=== PATIENT | female | born 2000 | race Caucasian/White ===

== ENCOUNTER → 2022-12-23 10:00 | Outpatient (BNV) | payer OTHER, SELFPAY | PROVIDERS: Visit Provider Psychiatry & Neurology Psychiatry | DX: F43.10 Post-traumatic stress disorder, unspecified (principal); F32.2 Major depressive disorder, single episode, severe without psychotic features | CPT/HCPCS: 90792; 99213 ==

== ENCOUNTER 2023-01-07 10:30 | Outpatient (RCR) | payer OTHER, SELFPAY ==
[2022-12-23 11:57] VITALS: BP 110/82; PULSE 80; TEMP 37.3
[2022-12-23 12:06] VITALS: BMI 20.5
--- NOTE | 2022-12-23 12:14 | HO.PS.ADMBH ---
HPI Date of Service: 12/23/22 Chief Complaint: depression [facility] Medical History (Updated 12/23/22 @ 12:08 by Jazmyne Martin, RN) Asthma POTS (postural orthostatic tachycardia syndrome) Surgical History (Updated 12/23/22 @ 12:11 by Jazmyne Martin, RN) H/O adenoidectomy Hx of tonsillectomy Diagnostics Vital Signs (24Hr): Vital Signs - 24 hr 12/23/22 11:57 Temperature 99.2 F Pulse Rate 80 Blood Pressure 110/82 BMI result Body Mass Index 20.5 Meds/Allergies Allergies Allergies Allergy/AdvReac Type Severity Reaction Status Date / Time amoxicillin Allergy Rash Verified 12/23/22 12:09 cephalexin [From Keflex] Allergy Rash Verified 12/23/22 12:09 lidocaine Allergy Hives Verified 12/23/22 12:09 Assessment & Plan Certification I certify that partial hospital treatment is medically necessary due to the symptoms and problems resulting from the patient's mental illness and the failure to treat the patient at the partial hospital level of care would likely result in the patient requiring inpatient psychiatric care which could not be prevented at a less intensive level of care. Time Spent With Patient Time: Total time managing care of this patient today ____ minutes.
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
--- NOTE | 2022-12-23 15:40 | PC.ADMIT ---
Patient is a 22 year old female who was referred to [facility] by [facility] where she was admitted d/t increased anxiety, panic, and SI secondary to trauma history being triggered at work. Patient works at [employer] and was brought to the ER by a [employer] worker as a result of her symptoms. Patient reports using Cannabis daily to help with her anxiety however thinks she is using more often than she would like and thinks it could be contributing to her anxiety. Akash was given education written and verbal about the effects physically and mentally of Marijuana. Patient is alert and oriented x4. Calm and cooperative. Presented with depressed mood and anxious affect. Reports she has images of harming herself and thinking she should kill herself in the context of trauma however she stated she has no plan or intent to act on these thoughts The thoughts are disturbing to Akash. She wants them to go away. Medication reconciled with patient and patient's discharge paperwork from [facility]. She reports taking medications as prescribed.
--- NOTE | 2022-12-27 15:25 | HO.PHP ---
Akash called [facility] and states she will be out because she has a UTI. She states that she will be back to [facility] tomorrow
--- NOTE | 2022-12-27 16:46 | HO.PHP ---
On 12/23/22 the clients case was reviewed and opened in treatment team.
--- NOTE | 2022-12-28 12:29 | P.PNPSP_ITS ---
Subjective Subjective Date of Service: 12/28/22 Reason For Visit: depression Interim History: Patient seen for follow-up today. No acute issues. She has been Wellbutrin 150 mg and Zoloft 100 mg daily. Well tolerated, feels they help, she is less jittery since dose of ZOloft lowered back down from 150 mg and feels she is less suicidal since WB. She says this is the first time in the program and really likes it but has a difficult time with talking in groups on a ccount of anxiety. She has prn 50 mg Seroquel for day time anxiety/PA but had been out, she just filled it yesterday and took a dose and then fell asleep/napped for a couple of hours. She's not been taking the prrazosin at night bc she is forgetting. She agrees to try taking it a bit earlier in the evening, and if doesnt cause sedation we may try BID dosing to address some of the jitteriness/nervous anxiety she experiences dialy. She also has POTS. Denies thgouths of harming self/others. Mental Status Exam Mental Status Exam Narrative: alert, oriented and pleasant. Normal speech. Good eye contact. Affect is appropriate and varied. No signs of psychosis. No suicidal ideations upon inquiry. Cognitively is intact. Judgment is intact Diagnostics Vital Signs (24Hr): BMI result Body Mass Index 20.5 Assessment & Plan Assessment & Plan (1) PTSD (post-traumatic stress disorder): Status: Acute Code(s): F43.10 - Post-traumatic stress disorder, unspecified (2) Major depress dis, severe: Status: Acute Code(s): F32.2 - Major depressive disorder, single episode, severe without psychotic features Plan continue treatment plan, improve compliance with prazosin. We discussed trying BID if [facility] Certification I certify that partial hospital treatment is medically necessary due to the symptoms and problems resulting from the patient's mental illness and the failure to treat the patient at the partial hospital level of care would likely result in the patient requiring inpatient psychiatric care which could not be prevented at a less intensive level of care. Total time managing care of this patient today __30__ minutes. Discharge Plan Discharge Attending provider: Terrell Mckeon Medications: Continued prazosin 1 mg capsule 1 mg PO BEDTIME Qty: 20 0RF Changed lorazepam 0.5 mg tablet 0.5 mg PO DAILY PRN (Reason: Anxiety) Qty: 14 0RF quetiapine 50 mg tablet 50 mg PO DAILY PRN (Reason: anxiety) Qty: 14 0RF No Action lansoprazole 15 mg capsule,delayed release(DR/EC) 15 mg PO DAILY bupropion HCl 150 mg tablet extended release 24 hr 150 mg PO QAM sertraline 100 mg tablet 150 mg PO DAILY
[2022-12-31 15:17] VITALS: BP 115/92; PULSE 98
[2023-01-05 14:05] VITALS: BP 140/99; PULSE 110
--- NOTE | 2023-01-05 14:12 | PC.NURSE ---
Patient requested BP check as she stated she thinks she is having a, POTS attack She stated she gets them about once a month. Stated while in group she started to feel tired and weak and shaky. Stated she felt her heart Pounding . She stated she drank 3 bottles of water and is feeling better now. Feels more awake, stated she does not feel her heart pounding. She is alert and oriented. Feels safe to drive now. BP 140/99 P 110. Stated while in the hospital her blood pressure was, all over the place .
--- NOTE | 2023-01-06 16:40 | HO.PHP ---
PHP staff member faxed the referral for an OP therapist through [facility] in [place] for Akash.
--- NOTE | 2023-01-07 10:10 | HO.PHPPROGNO ---
Subjective Subjective Date of Service: 01/07/23 Reason For Visit: depression Interim History: Patient seen, plan for discharge today. No acute issues or concerns. Had some questions around ADHD medication which were addressed. Patient reports mood is stable, feels intrusive thoughts and anxiety are better and also more manageable. Forgot to take prazosin last night and had worse nightmare of her life. She continues to tolerate 1 mg prazosin without adverse effects. She is prescribed BID which affords her to take 1 mg as well during the day for anxiety as tolerated, as well as 1 mg daily at bedtime. Denies any SI, last time was over a month ago. No safety concerns. Appears bright affect, future-oriented. Medication Compliance: Yes Side effects from medications: No Review of Systems Acute medical concerns: No Mental Status Exam Mental Status Exam Narrative: Alert, oriented, in no acute distress. Pleasant, forthcoming, cooperative. Normal speech. Good eye contact. Affect is appropriate and varied. No signs of psychosis. No suicidal ideations, no thoughts of harming self or others upon inquiry. Cognitively is intact. Insight is good, Judgment is intact Diagnostics Vital Signs (24Hr): BMI result Body Mass Index 20.5 Assessment & Plan Assessment & Plan (1) PTSD (post-traumatic stress disorder): Status: Acute Code(s): F43.10 - Post-traumatic stress disorder, unspecified (2) Major depress dis, severe: Status: Acute Code(s): F32.2 - Major depressive disorder, single episode, severe without psychotic features Plan Discharge from [facility] today Will follow up treatment with providers in the community Patient educated on: diagnosis and medication risk/benefits Informed Consent: understands Reason for contiued partial hosp. stay Substantial Risk for: stable for discharge Certification I certify that partial hospital treatment is medically necessary due to the symptoms and problems resulting from the patient's mental illness and the failure to treat the patient at the partial hospital level of care would likely result in the patient requiring inpatient psychiatric care which could not be prevented at a less intensive level of care. Total time managing care of this patient today __30__ minutes. Discharge Plan Discharge Attending provider: Terrell Mckeon Additional Instructions: Akash next scheduled OP therapy appointment is at the [facility] office ([phone]) with Misty Arriola for January 12, 2023 at 10 AM, in person. Pt has a virtual appt with a prescriber on Jan.20 with [facility] Medications: Continued bupropion HCl 150 mg tablet extended release 24 hr 150 mg PO QAM 14 Days Qty: 14 0RF prazosin 1 mg capsule 1 mg PO BID 14 Days Qty: 28 0RF Rx Instructions: as directed Changed lorazepam 0.5 mg tablet 0.5 mg PO DAILY PRN (Reason: Anxiety) Qty: 14 0RF sertraline 100 mg tablet 100 mg PO DAILY 14 Days Qty: 14 0RF quetiapine 50 mg tablet 50 mg PO DAILY PRN (Reason: anxiety) 14 Days Qty: 14 0RF Discontinued prazosin 1 mg capsule 1 mg PO BEDTIME No Action lansoprazole 15 mg capsule,delayed release(DR/EC) 15 mg PO DAILY Stand Alone Forms: Patient Portal Discharge page Patient Education: Prazosin (By mouth), Depression (DC)
--- NOTE | 2023-01-07 10:42 | HO.PHP ---
PHP staff member reached out to Maribel through [facility] to receive scheduled appointment time for Akash Sweet OP therapy. Akash next scheduled appointment is at the [facility] office ([phone]) with Misty Arriola for January 12, 2023 at 10 AM, in person.
== END 2023-01-07 23:59 | disposition home or self-care (01) ==
LOC: HO.PHPA 10:30
PROVIDERS: Visit Provider Psychiatry & Neurology Psychiatry
DX: F32.2 Major depressive disorder, single episode, severe without psychotic features (principal); F43.10 Post-traumatic stress disorder, unspecified; Z79.899 Other long term (current) drug therapy
CPT/HCPCS: 90791; 90853